=== PATIENT | female | born 1970 | race Caucasian/White ===

== ENCOUNTER 2016-07-16 14:56 | Emergency (ER) | payer SELFPAY ==
[2016-07-16] MEDS ORDERED: Triamcinolone 40 MG/ML VIAL ONE ×2 (15:38→15:40)
--- NOTE | 2016-07-16 16:20 | ERRECORD ---
[facility] EMERGENCY RECORD HPI FLU-LIKE SYNDROME (15:09 DHAM) CHIEF COMPLAINT: Denies body aches, Denies fever, Patient presents for evaluation of upper respiratory infection. HISTORIAN: History provided by patient. LOCATION: Symptoms are localized, most severe to bilat rib pain with deep cough. QUALITY: Unable to describe the quality of the pain. SEVERITY: Maximum severity of symptoms mild, Currently symptoms are mild. TIME COURSE: Gradual onset of symptoms, 10, days priror to arrival, Symptoms are worsening, increased cough and sputum over the last 48 hours. Has not used her inhaler at home. ASSOCIATED WITH: Associated with chest pain, for 2 days, intermittent, Associated with cough, No associated diarrhea, No associated headache, No associated vomiting, No associated neck pain, No associated rash, No associated shortness of breath, No associated urinary tract infection signs or symptoms, niece with recent URI in the house. EXACERBATED BY: Patient's condition exacerbated by cough. RELIEVED BY: Patient's condition relieved by nothing. ROS (15:09 DHAM) CONSTITUTIONAL: Historian denies chills, denies fatigue, denies fever, reports night sweats. nights sweats off and on for months with suspected perimenopausal symptoms. EYES: Negative eye review of systems. ENT: Historian reports rhinorrhea. CARDIOVASCULAR: Negative cardiovascular review of systems. RESPIRATORY: Historian reports cough. GI: Historian denies abdominal pain, denies appetite changes, denies diarrhea, denies nausea, denies vomiting. GENITOURINARY FEMALE: Negative genitourinary review of systems. MUSCULOSKELETAL: Historian denies arthralgias, denies joint redness, denies joint stiffness, denies joint swelling, denies myalgias. SKIN: Historian reports rash, left post upper arm with rash for just a few minutes. NEUROLOGIC: Historian denies headache. ENDOCRINE: Negative endocrine review of systems. PSYCHIATRIC: Negative psychiatric review of systems. PAST MEDICAL HISTORY MEDICAL HISTORY: Notes: HYPOGLYCEMIA, Asthma, Flu vaccine not up to date, Pneumococcal vaccine not up to date. REVIEWED on 07/16/16. (15:07 HASA) FEMALE SURGICAL HISTORY: Surgical history of laparotomy, Surgical history of orthopedic surgery, Knee Surgery, Surgical history of tubal ligation. REVIEWED on 07/16/16. (15:07 HASA) PSYCHIATRIC HISTORY: Notes: Depression. REVIEWED on &a-1R&a+25V*p+0X*d2240E*c202B*c15G*c2P*p-0X&a-25V&a+1R Name: Kiarra Kerns : 1970 F45 MedRec: [id number] AcctNum: [id number] Prepared: Cassia Jul 17, 2016 09:00 by Interface Page 1 of 4 pMD [facility] EMERGENCY RECORD 07/16/16. (15:07 HASA) SOCIAL HISTORY: Patient drinks socially, every week, Patient denies drug use, Patient currently uses tobacco, smokes cigarettes, daily, Patient smokes 1 pack per day, Lives at home, with family. REVIEWED on 07/16/16. (15:07 HASA) NOTES: I have reviewed the nursing documentation regarding PMHX, social hx, family hx, and surgical history as well as vitals and triage notes and agree. (15:09 DHAM) KNOWN ALLERGIES aspirin Sudafed CURRENT MEDICATIONS (15:04 HASA) None VITAL SIGNS VITAL SIGNS: BP: 151/88, Pulse: 93, Resp: 18, Temp: 98.3 (Oral), Pain: 3, O2 sat: 99 on Room Air, Time: 07/16/2016 15:00. (15:00 HASA) BP: 131/86, Pulse: 84, Resp: 16 (Non-Labored), Temp: 98.1 (Oral), Pain: 3, O2 sat: 96 on Room Air, Time: 07/16/2016 15:51. (15:51 HASA) PHYSICAL EXAM (15:09 DHAM) CONSTITUTIONAL: Vital signs reviewed, Patient afebrile, Pulse normal, Blood pressure normal, Respiratory rate normal, Patient appears non toxic, Patient appears pain free, Patient alert and oriented to person, place and time. HEAD: Head exam normal, Head exam included findings of head atraumatic, normocephalic. EYES: Eye exam normal, Eye exam included findings of eyelids normal to inspection, Pupils equally round and reactive to light, Extraocular muscles intact, Conjunctiva normal, Sclera normal, Fundoscopic exam normal. ENT: ENT exam normal, Ear exam normal, Nose exam included findings of, congestion and rhinorrhea, Pharynx exam normal, Uvula exam normal, Tonsil exam normal, Mouth exam normal, teeth normal. NECK: Neck exam normal, Neck exam included findings of normal range of motion, Trachea midline, no meningeal signs. RESPIRATORY CHEST: Respiratory exam included findings of no respiratory distress, Breath sounds not clear, Wheezing present, diffusely, No rales, No rhonchi, Breath sounds otherwise clear, Chest exam included findings of chest movement symmetrical, no tenderness, rare diffuse wheeze with forced expiration. CARDIOVASCULAR: Cardiovascular assessment normal, Cardiovascular exam included findings of heart rate regular rate and rhythm, Heart sounds normal. ABDOMEN FEMALE: Abdominal exam normal, Abdominal exam included findings of abdomen nontender, Bowel sounds normal, Liver normal, &a-1R&a+25V*p+0X*v3304P*c202B*c15G*c2P*p-0X&a-25V&a+1R Name: Kiarra Kerns : 1970 F45 MedRec: [id number] AcctNum: [id number] Prepared: Cassia Jul 17, 2016 09:00 by Interface Page 2 of 4 pMD [facility] EMERGENCY RECORD Spleen normal, no distension, no peritoneal signs. BACK: Back exam normal. UPPER EXTREMITY: Upper extremity exam normal. LOWER EXTREMITY: Lower extremity exam normal. NEURO: Neuro exam normal, Lamar coma scale 15, Neuro exam findings include patient oriented to person, place and time, Speech normal, Gait normal, Memory normal, Cranial nerves intact. SKIN: Skin exam normal, Skin exam included findings of skin warm, dry, and normal in color, Rash present, 8-10 tiny erythematous papules just prox to the left elbow posteriorly on the left. a couple of these have a tiny vesicle in the center that makes me consider early herpes simplex or poison celio/contact dermatitis. LYMPHATIC: Lymphatic exam normal. PSYCHIATRIC: Psychiatric exam normal, Psychiatric exam included findings of patient oriented to person place and time, Normal affect, Judgment normal, Insight normal, Remote memory normal, Recent memory normal, Concentration normal. RADIOLOGYINTERPRETATION (15:09 DHAM) CHEST: Chest films negative, no infiltrates, no pneumothorax, no hemothorax, no masses, no cardiomegaly, no congestive heart failure, no effusion, no free air. MEDICATION ADMINISTRATION SUMMARY Drug Name: Kenalog injection, Dose Ordered: 60 mg, Route: Intramuscular, Status: Given, Time: 15:48 07/16/2016, Detailed record available in Medication Service section. DOCTOR NOTES (15:28 DHAM) TEXT: Pt is laughing and speaking in full sentences and without s/s of resp compromise. With her symptoms over 10 days, this may be uri with bronchospasm. She also has lots of sneezing as well. [place] pollen has recently come out so this may be worsening her symptoms as well. Will give a dose of steroids as I suspect this rash is contact related as well. will also give some abx for poss sinusitis and refill her albuterol as well and encouraged smoking cessation. PROBLEM LIST No recorded problems DIAGNOSIS (15:41 DHAM) FINAL: PRIMARY: ALLERGIC RHINITIS DUE TO POLLEN, ADDITIONAL: ACUTE BRONCHOSPASM, UNS CONTACT DERMATITIS CHEM PROD. PRESCRIPTION (15:35 DHAM) albuterol: AEROSOL (GM) : 90 mcg : INHALATION : Quantity: 2 &a-1R&a+25V*p+0X*s8893W*c202B*c15G*c2P*p-0X&a-25V&a+1R Name: Kiarra Kerns : 1970 F45 MedRec: [id number] AcctNum: [id number] Prepared: Cassia Jul 17, 2016 09:00 by Interface Page 3 of 4 pMD [facility] EMERGENCY RECORD Unit: puff(s) Route: INHALATION Schedule: every 6 hours PRN Dispense: 1 Unit: ea May substitute. Refills: No Refills POTENTIAL ALLERGY REACTION: 'Sudafed [pseudoephedrine/pseudoephedrine HCl]' Override Rationale: has taken for yrs without problems. NOTES: No refills. Bactrim DS: TABLET : 800 mg-160 mg : ORAL : Quantity: 1 Unit: tab(s) Route: ORAL Schedule: 2 times a day (before meals) Dispense: 20 Unit: tab(s) May substitute. Refills: No Refills . NOTES: ^s=No refills No refills. DISPOSITION PATIENT: Disposition Type: Discharge, Disposition: *Discharge Home. (15:39 DHAM) Disposition: (none). (15:41 EARNESTINE) Disposition: *Discharge Home, Patient left the department. (16:18 PHILIPPE) [place]: EARNESTINE=MD Piter, Ranjeet PAEZ=CRISTAL [place], [place] &a-1R&a+25V*p+0X*s4105P*c202B*c15G*c2P*p-0X&a-25V&a+1R Name: Kiarra Kerns : 1970 F45 MedRec: [id number] AcctNum: [id number] Prepared: Cassia Jul 17, 2016 09:00 by Interface Page 4 of 4 pMD MTDD
--- NOTE | 2016-07-16 16:26 | PICIS ---
[facility] EMERGENCY RECORD TRIAGE ([facility] Jul 16, 2016 15:02 HASA) TRIAGE NOTES: Cold x2 weeks. Hurts to cough. Clear sputum. (Sat Jul 16, 2016 15:02 HASA) PATIENT: NAME: Kiarra Kerns, AGE: 45, GENDER: female, : Mon1970, TIME OF GREET: Sat Jul 16, 2016 14:56, PREFERRED LANGUAGE: Belarusian, ETHNICITY: Not or , ECODE BILLING MAP: [facility], SSN: [id number], Zip Code: [address], KG WEIGHT: 90.72, , , PERSON ID: [id number], PAYMENT: [employer] Self Pay, PCP: None. (Sat Jul 16, 2016 15:02 HASA) PHONE: . (15:11) COMPLAINT: FLU-LIKE SYMPTOMS. (Sat Jul 16, 2016 15:02 HASA) ADMISSION: URGENCY: 4 Non Urgent, ADMISSION SOURCE: Home, TRANSPORT: Walk-in, BED: TRIAGE. (Sat Jul 16, 2016 15:02 HASA) SIRS SCORING: Heart Rate 55-109 (0), Temp range 96.8-101.1 (0), respiratory rate 12-24 (0), Latest WBC 3-14.9 (0), Mental Status altered: no (0), Infection or Suspected Infection: No. (15:07 HASA) TRIAGE SCREENING: Patient denies suicidal ideation, Patient denies presence of domestic violence. (15:07 HASA) LMP: Last menstrual period: 07/10/2016. (15:09 LGIB) PROVIDERS: TRIAGE NURSE: Kate Rich RN. (Sat Jul 16, 2016 15:02 HASA) VITAL SIGNS: BP 151/88, Pulse 93, Resp 18, Temp 98.3, (Oral), Pain 3, O2 Sat 99, on Room Air, Time 07/16/2016 15:00. (15:00 HASA) PREVIOUS VISIT ALLERGIES: aspirin, Sudafed. (Sat Jul 16, 2016 15:02 HASA) aspirin, Sudafed. (15:07 HASA) KNOWN ALLERGIES aspirin Sudafed CURRENT MEDICATIONS (15:04 HASA) None VITAL SIGNS VITAL SIGNS: BP: 151/88, Pulse: 93, Resp: 18, Temp: 98.3 (Oral), Pain: 3, O2 sat: 99 on Room Air, Time: 07/16/2016 15:00. (15:00 HASA) BP: 131/86, Pulse: 84, Resp: 16 (Non-Labored), Temp: 98.1 (Oral), Pain: 3, O2 sat: 96 on Room Air, Time: 07/16/2016 15:51. (15:51 HASA) NURSING ASSESSMENT: RESPIRATORY /CHEST (15:12 HASA) CONSTITUTIONAL: Patient arrives ambulatory, Gait steady, History obtained from patient, Patient appears comfortable, Patient cooperative, Patient alert, Oriented to person, place and time, Skin warm, Skin dry, Skin normal in color, Mucous membranes pink, Mucous membranes moist, Patient is well-groomed, Patient complains of COUGH/CONGESTION, Patient presents to the ER for flu-like symptoms. Reports cough and congestion x2 weeks. Reports clear sputum. Reports itching rash on left upper arm. Afebrile. Reports &a-1R&a+25V*p+0X*[id number]*c202B*c15G*c2P*p-0X&a-25V&a+1R Name: Kiarra Kerns : 1970 F45 MedRec: [id number] AcctNum: [id number] Prepared: Csasia Jul 17, 2016 09:06 by Interface Page 1 of 7 pMD [facility] EMERGENCY RECORD pain in sides when coughing as 3 out of 10. PAIN: to the left lateral chest, to the right lateral chest, on a scale 0-10 patient rates pain as 3. RESPIRATORY/CHEST: Lungs auscultated, Breath sounds with rales, to bilateral lower lobes, Breath sounds with wheezing, posteriorally, to bilateral upper lobes, Respiratory assessment findings include respiratory effort easy, Respirations regular, Conversing normally, Neck and chest exam findings include trachea midline, Chest expansion equal, Chest movement symmetrical, Associated with cough, loose, productive of, clear sputum, no associated fever. ENT: Ear assessment findings include ear normal to inspection, Nasal assessment findings include nose normal to inspection, Sinuses normal, Nasal mucosa normal, Mouth and throat assessment findings include mouth inspection normal, Uvula normal, Tonsils normal, Mucous membranes pink, and moist, Able to swallow, Speech normal, no associated fever, no associated headache. SAFETY: Side rails up, Cart/Stretcher in lowest position, Family at bedside, Call light within reach, Hospital ID band on. NURSING PROCEDURE: DISCHARGE NOTE DISCHARGE: Patient discharged to home, ambulating without assistance, family driving, accompanied by other family member, Summary of Care printed/ provided, Patient requested and was provided an electronic copy of Discharge Instructions, Transition record given to patient, Discharge instructions given to patient, Prescriptions given and instructions on side effects given, Medication reconciliation form given, Above person(s) verbalized understanding of discharge instructions and follow-up care, Notes: Patient instructed on discharge instructions. Patient instructed on proper medication usage. Patient advised to stop smoking. (15:55 HASA) Patient discharged to home, ambulating without assistance, family driving, accompanied by other family member, Summary of Care printed/ provided, Transition record given to patient, Discharge instructions given to patient, Prescriptions given and instructions on side effects given, Above person(s) verbalized understanding of discharge instructions and follow-up care, Patient treated and evaluated by physician. (16:05 AHOO) NURSING PROCEDURE: TRANSPORT TO TESTS PATIENT IDENTIFIER: Patient actively involved in identification process, Patient's identity verified by patient stating name, Patient's identity verified by patient stating date. (15:17 HASA) TRANSPORT TO TESTS: Transport indicated to facilitate diagnosis, Patient transported to x-ray, via wheelchair, Accompanied by x-ray auto emissions technician. (15:17 HASA) FOLLOW-UP: After procedure, patient returned to emergency &a-1R&a+25V*p+0X*[id number]*c202B*c15G*c2P*p-0X&a-25V&a+1R Name: Kiarra Kerns : 1970 F45 MedRec: [id number] AcctNum: [id number] Prepared: Cassia Jul 17, 2016 09:06 by Interface Page 2 of 7 D [facility] EMERGENCY RECORD department. (15:27 HASA) SAFETY: Side rails up, Cart/Stretcher in lowest position, Family at bedside, Call light within reach, Hospital ID band on. (15:17 HASA) ORDER DETAILS Order Name: XR Chest Pa & Lat STANDARD, Status: Active, Time: 15:08 07/16/2016, User: [facility], - Ordered for: MD Dumas Darren, - Entered by: MD Dumas Darren - Sat Jul 16, 2016 15:08, - Quantity: 1. MEDICATION ADMINISTRATION SUMMARY Drug Name: Kenalog injection, Dose Ordered: 60 mg, Route: Intramuscular, Status: Given, Time: 15:48 07/16/2016, Detailed record available in Medication Service section. MEDICATION SERVICE Kenalog injection: Order: Kenalog injection (triamcinolone acetonide) - Dose: 60 mg : Intramuscular Schedule: Now Ordered by: Ranjeet Dumas MD Entered by: Ranjeet Dumas MD Sat Jul 16, 2016 15:37 , Acknowledged by: Kate Rich RN Sat Jul 16, 2016 15:39 Documented as given by: Kate Rich RN Sat Jul 16, 2016 15:48 Patient, Medication, Dose, Route and Time verified prior to administration. IM medication, Amount given: 60 MG, Medication administered to left buttock, Correct patient, time, route, dose and medication confirmed prior to administration, Patient advised of actions and side-effects prior to administration, Allergies confirmed and medications reviewed prior to administration, Patient in position of comfort, Side rails up, Cart in lowest position, Family at bedside. : Follow Up : Response assessment performed, No signs or symptoms of allergic reaction noted. (16:05 [facility]) HPI FLU-LIKE SYNDROME (15:09 [facility]) CHIEF COMPLAINT: Denies body aches, Denies fever, Patient presents for evaluation of upper respiratory infection. HISTORIAN: History provided by patient. LOCATION: Symptoms are localized, most severe to bilat rib pain with deep cough. QUALITY: Unable to describe the quality of the pain. SEVERITY: Maximum severity of symptoms mild, Currently symptoms are mild. TIME COURSE: Gradual onset of symptoms, 10, days priror to arrival, Symptoms are worsening, increased cough and sputum over the last 48 hours. Has not used her inhaler at home. ASSOCIATED WITH: &a-1R&a+25V*p+0X*t8932P*c202B*c15G*c2P*p-0X&a-25V&a+1R Name: Kiarra Kerns : 1970 F45 MedRec: [id number] AcctNum: [id number] Prepared: Cassia Jul 17, 2016 09:06 by Interface Page 3 of 7 pMD [facility] EMERGENCY RECORD Associated with chest pain, for 2 days, intermittent, Associated with cough, No associated diarrhea, No associated headache, No associated vomiting, No associated neck pain, No associated rash, No associated shortness of breath, No associated urinary tract infection signs or symptoms, niece with recent URI in the house. EXACERBATED BY: Patient's condition exacerbated by cough. RELIEVED BY: Patient's condition relieved by nothing. ROS (15:09 DHA) CONSTITUTIONAL: Historian denies chills, denies fatigue, denies fever, reports night sweats. nights sweats off and on for months with suspected perimenopausal symptoms. EYES: Negative eye review of systems. ENT: Historian reports rhinorrhea. CARDIOVASCULAR: Negative cardiovascular review of systems. RESPIRATORY: Historian reports cough. GI: Historian denies abdominal pain, denies appetite changes, denies diarrhea, denies nausea, denies vomiting. GENITOURINARY FEMALE: Negative genitourinary review of systems. MUSCULOSKELETAL: Historian denies arthralgias, denies joint redness, denies joint stiffness, denies joint swelling, denies myalgias. SKIN: Historian reports rash, left post upper arm with rash for just a few minutes. NEUROLOGIC: Historian denies headache. ENDOCRINE: Negative endocrine review of systems. PSYCHIATRIC: Negative psychiatric review of systems. PAST MEDICAL HISTORY MEDICAL HISTORY: Notes: HYPOGLYCEMIA, Asthma, Flu vaccine not up to date, Pneumococcal vaccine not up to date. REVIEWED on 07/16/16. (15:07 HASA) FEMALE SURGICAL HISTORY: Surgical history of laparotomy, Surgical history of orthopedic surgery, Knee Surgery, Surgical history of tubal ligation. REVIEWED on 07/16/16. (15:07 HASA) PSYCHIATRIC HISTORY: Notes: Depression. REVIEWED on 07/16/16. (15:07 HASA) SOCIAL HISTORY: Patient drinks socially, every week, Patient denies drug use, Patient currently uses tobacco, smokes cigarettes, daily, Patient smokes 1 pack per day, Lives at home, with family. REVIEWED on 07/16/16. (15:07 HASA) NOTES: I have reviewed the nursing documentation regarding PMHX, social hx, family hx, and surgical history as well as vitals and triage notes and agree. (15:09 DHA) PHYSICAL EXAM (15:09 DHAM) CONSTITUTIONAL: Vital signs reviewed, Patient afebrile, Pulse normal, Blood pressure normal, Respiratory rate normal, Patient &a-1R&a+25V*p+0X*g9828M*c202B*c15G*c2P*p-0X&a-25V&a+1R Name: Kiarra Kerns : 1970 F45 MedRec: [id number] AcctNum: [id number] Prepared: Cassia Jul 17, 2016 09:06 by Interface Page 4 of 7 pMD [facility] EMERGENCY RECORD appears non toxic, Patient appears pain free, Patient alert and oriented to person, place and time. HEAD: Head exam normal, Head exam included findings of head atraumatic, normocephalic. EYES: Eye exam normal, Eye exam included findings of eyelids normal to inspection, Pupils equally round and reactive to light, Extraocular muscles intact, Conjunctiva normal, Sclera normal, Fundoscopic exam normal. ENT: ENT exam normal, Ear exam normal, Nose exam included findings of, congestion and rhinorrhea, Pharynx exam normal, Uvula exam normal, Tonsil exam normal, Mouth exam normal, teeth normal. NECK: Neck exam normal, Neck exam included findings of normal range of motion, Trachea midline, no meningeal signs. RESPIRATORY CHEST: Respiratory exam included findings of no respiratory distress, Breath sounds not clear, Wheezing present, diffusely, No rales, No rhonchi, Breath sounds otherwise clear, Chest exam included findings of chest movement symmetrical, no tenderness, rare diffuse wheeze with forced expiration. CARDIOVASCULAR: Cardiovascular assessment normal, Cardiovascular exam included findings of heart rate regular rate and rhythm, Heart sounds normal. ABDOMEN FEMALE: Abdominal exam normal, Abdominal exam included findings of abdomen nontender, Bowel sounds normal, Liver normal, Spleen normal, no distension, no peritoneal signs. BACK: Back exam normal. UPPER EXTREMITY: Upper extremity exam normal. LOWER EXTREMITY: Lower extremity exam normal. NEURO: Neuro exam normal, Babita coma scale 15, Neuro exam findings include patient oriented to person, place and time, Speech normal, Gait normal, Memory normal, Cranial nerves intact. SKIN: Skin exam normal, Skin exam included findings of skin warm, dry, and normal in color, Rash present, 8-10 tiny erythematous papules just prox to the left elbow posteriorly on the left. a couple of these have a tiny vesicle in the center that makes me consider early herpes simplex or poison celio/contact dermatitis. LYMPHATIC: Lymphatic exam normal. PSYCHIATRIC: Psychiatric exam normal, Psychiatric exam included findings of patient oriented to person place and time, Normal affect, Judgment normal, Insight normal, Remote memory normal, Recent memory normal, Concentration normal. EVENTS TRANSFER: Triage to Emergency Triage. (Sat Jul 16, 2016 15:02 HASA) Emergency Triage to Emergency Room -02. (15:07 HASA) Removed from Emergency Emergency Room -02. (16:18 HASA) &a-1R&a+25V*p+0X*u7601L*c202B*c15G*c2P*p-0X&a-25V&a+1R Name: Kiarra Kerns : 1970 F45 MedRec: [id number] AcctNum: [id number] Prepared: Cassia Jul 17, 2016 09:06 by Interface Page 5 of 7 pMD [facility] EMERGENCY RECORD RADIOLOGYINTERPRETATION (15:09 DHAM) CHEST: Chest films negative, no infiltrates, no pneumothorax, no hemothorax, no masses, no cardiomegaly, no congestive heart failure, no effusion, no free air. O2SAT INTERPRETATION (15:15 DHAM) O2SAT: Single pulse oximetry, Oxygen saturation 99%, on room air, Oxygen saturation interpretation: Normal, No intervention required. DOCTOR NOTES (15:28 DHAM) TEXT: Pt is laughing and speaking in full sentences and without s/s of resp compromise. With her symptoms over 10 days, this may be uri with bronchospasm. She also has lots of sneezing as well. Smock pollen has recently come out so this may be worsening her symptoms as well. Will give a dose of steroids as I suspect this rash is contact related as well. will also give some abx for poss sinusitis and refill her albuterol as well and encouraged smoking cessation. PROBLEM LIST No recorded problems DIAGNOSIS (15:41 DHAM) FINAL: PRIMARY: ALLERGIC RHINITIS DUE TO POLLEN, ADDITIONAL: ACUTE BRONCHOSPASM, UNS CONTACT DERMATITIS CHEM PROD. DISPOSITION PATIENT: Disposition Type: Discharge, Disposition: *Discharge Home. (15:39 DHAM) Disposition: (none). (15:41 DHAM) Disposition: *Discharge Home, Patient left the department. (16:18 HASA) INSTRUCTION (15:45 HASA) DISCHARGE: ALLERGIC RHINITIS. SPECIAL: Bactrim DS one twice a day for 10 days Albuterol HFA 2 puffs every 4-6 hours as needed for wheezing. Please use this regularly for the next several days. Return for fever, increased rash, shortness of breath or any other concerns. PLEASE STOP SMOKING!. PRESCRIPTION (15:35 DHAM) albuterol: AEROSOL (GM) : 90 mcg : INHALATION : Quantity: 2 Unit: puff(s) Route: INHALATION Schedule: every 6 hours PRN Dispense: 1 Unit: ea May substitute. Refills: No Refills POTENTIAL ALLERGY REACTION: 'Sudafed [pseudoephedrine/pseudoephedrine HCl]' Override Rationale: has taken for yrs without problems. &a-1R&a+25V*p+0X*g1634C*c202B*c15G*c2P*p-0X&a-25V&a+1R Name: Kiarra Kerns : 1970 F45 MedRec: [id number] AcctNum: [id number] Prepared: Cassia Jul 17, 2016 09:06 by Interface Page 6 of 7 pMD [facility] EMERGENCY RECORD NOTES: No refills. Bactrim DS: TABLET : 800 mg-160 mg : ORAL : Quantity: 1 Unit: tab(s) Route: ORAL Schedule: 2 times a day (before meals) Dispense: 20 Unit: tab(s) May substitute. Refills: No Refills . NOTES: ^s=No refills No refills. IMAGING (16:11 [facility]) *DISCHARGE INSTRUCTIONS RECEIPT: Image captured from scanner. *SUPPLY CHARGE SHEET: Image captured from scanner. ADMIN (Cassia Jul 17, 2016 08:57 DHAM) DIGITAL SIGNATURE: MD Dumas Darren. [place]: OO=RUTH PatinoOctober DHA=MD Dumas Darren HASA=CRISTAL Rich, Kate LGIB=CRISTAL Perez, Rae &a-1R&a+25V*p+0X*h8999K*c202B*c15G*c2P*p-0X&a-25V&a+1R Name: Kiarra Kerns : 1970 F45 MedRec: [id number] AcctNum: [id number] Prepared: Cassia Jul 17, 2016 09:06 by Interface Page 7 of 7 pMD MTDD
--- NOTE | 2016-07-17 15:35 | RAD ---
CHEST TWO VIEWS: Date: 07-16-16 FINDINGS: The heart is normal in size and the lungs are clear. There is no sign of pneumonia or other infiltr ative process. The mediastinum appears normal. The bony structures appear normal for age. IMPRESSION: No acute findings. POS: HOME
== END 2016-07-16 16:05 | disposition home or self-care (01) ==
LOC: BURERS 14:56
DX: J30.1 Allergic rhinitis due to pollen (principal); J98.01 Acute bronchospasm; L25.3 Unspecified contact dermatitis due to other chemical products; F17.210 Nicotine dependence, cigarettes, uncomplicated; Z98.51 Tubal ligation status
CPT/HCPCS: 71020; 96372; J3301

== ENCOUNTER 2017-08-16 19:19 | Emergency (ER) | payer SELFPAY ==
[2017-08-16] MEDS ORDERED: AMOXicillin 250 MG CAP ONE (19:59)
[2017-08-16] MEDS ORDERED: predniSONE 20 MG TAB ONE (19:59)
== END 2017-08-16 20:00 | disposition home or self-care (01) ==
LOC: BURERS 19:19
DX: J20.9 Acute bronchitis, unspecified (principal); J45.909 Unspecified asthma, uncomplicated; F32.9 Major depressive disorder, single episode, unspecified; F17.210 Nicotine dependence, cigarettes, uncomplicated
CPT/HCPCS: 99283; J7506

== ENCOUNTER 2019-02-04 19:01 | Emergency (ER) | payer SELFPAY ==
[2019-02-04] MEDS ORDERED: Cephalexin 500 MG CAP ONE (19:16)
== END 2019-02-04 19:24 | disposition home or self-care (01) ==
LOC: BURERS 19:01
DX: S80.211A Abrasion, right knee, initial encounter (principal); S80.212A Abrasion, left knee, initial encounter; L03.115 Cellulitis of right lower limb; F32.9 Major depressive disorder, single episode, unspecified; F17.210 Nicotine dependence, cigarettes, uncomplicated; X58.XXXA Exposure to other specified factors, initial encounter
CPT/HCPCS: 99283